=== PATIENT | female | born 1955 | race Caucasian/White ===

== ENCOUNTER 2020-01-15 10:39 | Inpatient (IN) | payer MEDICAID, OTHER ==
[2020-01-15] MEDS ORDERED: NORMAL SALINE 1000 ML 1,000 ML IV ONE ×2 (10:57→13:07)
[2020-01-15] MEDS ORDERED: ONDANSETRON HCL INJ/PF 4 MG/2 ML SDV IV ONE (10:57)
--- NOTE | 2020-01-15 11:04 | ER Document Report ---
ED Medical Screen (RME) - General Chief Complaint: Abdominal Pain Stated Complaint: ABDOMINAL PAIN Time Seen by Provider: 01/15/20 10:52 Primary Care Provider: JAKOB QUINTANILLA PA [Primary Care Provider] - Follow up as needed - HPI Notes: 01/15/20 10:59 64-year-old female was sent over by her PCP (Dr. Glaser) for concern of strangulated umbilical hernia that has been bothering her for the last 5 days. She has been having greenish emesis per her . states that she has had his umbilical hernia for the last year, that she wore tight pants 5 days ago and since then she has had issues with this hernia. On triage patient's blood pressure 74/62, with a pulse ox of 87%. Marline, charge nurse, made aware is Dr. Lawler, ER supervising physician effusion status at 1100. She was bro ught right back to room 8. Consulted with Dr. Lawler about CT abdomen pelvis with IV and oral contrast, due to concern of strangulated hernia, advised to order CT abdomen pelvis with IV contrast. I have greeted and performed a rapid initial assessment of this patient. A comprehensive ED assessment and evaluation of the patient, analysis of test results and completion of the medical decision making process will be conducted by additional ED providers. PHYSICAL EXAMINATION: GENERAL: Well-appearing, well-nourished and in no acute distress. CV: s1, s2 regular LUNGS: wheezing in upper lobes abd: unable to reduce umbilical hernia, noted circumferential erythema around hernia. - Related Data Allergies/Adverse Reactions: No Known Allergies Allergy (Verified 01/15/20 10:52) Doctor's Discharge - Discharge Referrals: JAKOB QUINTANILLA PA [Primary Care Provider] - Follow up as needed
[2020-01-15] MEDS ORDERED: PIPERACILLIN/TAZOBACTAM 4.5 GM VIAL IV ONE (11:15)
--- NOTE | 2020-01-15 11:15 | ER Document Report ---
ED General - General Chief Complaint: Low Blood Pressure Stated Complaint: ABDOMINAL PAIN Time Seen by Provider: 01/15/20 10:52 Primary Care Provider: JAKOB QUINTANILLA PA [PHYSICIAN ASSISTANT MANAGER] - Follow up as needed Mode of Arrival: Ambulatory Information source: Patient - [facility] Notes: Patient seen immediately by me as soon as she arrived in the room. Patient complains of abdominal pain. She states has been going on for approximately 3 days. She has had nausea and vomiting with it. The abdominal pain is located around the umbilicus. It is severe and constant. It is worse with movement and better with rest. It radiates throughout her abdomen. She denies any problems with stool. No problems with urination. She states she has had this mass around her umbilicus for about 1 year but is not seen a doctor about it. She denies any previous abdominal surgeries. - Related Data Allergies/Adverse Reactions: No Known Allergies Allergy (Verified 01/15/20 10:52) Home Medications: HEART MEDICATIONS Past Medical History - General Information source: Patient - Social History Smoking Status: Current Every Day Smoker Chew tobacco use (# tins/day): No Frequency of alcohol use: None Drug Abuse: None Family History: Reviewed & Not Pertinent Patient has homicidal ideation: No Review of Systems - Review of Systems Constitutional: denies: Chills, Fever Cardiovascular: denies: Chest pain, Palpitations Respiratory: denies: Cough, Short of breath -: Yes All other systems reviewed and negative Physical Exam - Vital signs Vitals: Temp Pulse Resp BP Pulse Ox 97.5 F 87 14 74/50 L 87 L 01/15/20 10:50 01/15/20 10:50 01/15/20 10:50 01/15/20 10:50 01/15/20 10:50 Interpretation: Hypotensive, Hypoxic - General General appearance: Alert - HEENT Head: Normocephalic, Atraumatic Eyes: Normal Pupils: PERRL - Respiratory Respiratory status: No respiratory distress Chest status: Nontender Breath sounds: Decreased air movement Chest palpation: Normal - Cardiovascular Rhythm: Regular Heart sounds: Normal auscultation Murmur: No Pulses: Absent: Radial - Abdominal Inspection: Other - [place] obvious hernia Distension: No distension Bowel sounds: Hypoactive Tenderness: Tender - Patient has an obvious umbilical hernia with tenderness to palpation. Is not reducible. It is slightly discolored. - Back Back: Normal, Nontender - Extremities General upper extremity: Normal inspection, Nontender, Normal color, Normal ROM, Normal temperature General lower extremity: Normal inspection, Nontender, Normal color, Normal ROM, Normal temperature, Normal weight bearing. No: Bhavin's sign - Neurological Neuro grossly intact: Yes Cognition: Normal Orientation: AAOx4 [place] Coma Scale Eye Opening: Spontaneous [place] Coma Scale Verbal: Oriented [place] Coma Scale Motor: Obeys Commands Vaibhav Coma Scale Total: 15 Speech: Normal Motor strength normal: LUE, RUE, LLE, RLE Sensory: Normal - Psychological Associated symptoms: Normal affect, Normal mood - Skin Skin Temperature: Warm Skin Moisture: Dry Skin Color: Normal Course - Re-evaluation Re-evalutation: 01/15/20 14:11 Patient presented with complaints of severe abdominal pain. She had an obvious nonreducible umbilical hernia. She was also noted to be hypoxic however her chest x-ray shows no significant abnormality and she is currently on nasal cannula with an adequate oxygen saturation. She was also hypotensive however this is corrected with IV fluids. She has been given antibiotics and has seen the surgeon. She is also been consulted on by cardiology. Please see their notes for further details. In addition I have contacted the patient's primary care physician, Dr. Glaser who will do the admission. Patient at this time is waiting on an operating room to become available. - Vital Signs Vital signs: Temp Pulse Resp BP Pulse Ox 98.4 F 87 20 116/68 85 L 01/15/20 13:45 01/15/20 10:50 01/15/20 13:45 01/15/20 13:45 01/15/20 13:45 - Laboratory Result Diagrams: 01/15/20 10:57 01/15/20 11:15 Laboratory results interpreted by me: 01/15/20 01/15/20 01/15/20 10:57 11:15 11:15 WBC 17.5 H RBC 5.85 H Hgb 19.0 H Hct 54.5 H RDW 14.1 H Lymph % (Auto) 8.4 L Absolute Neuts (auto) 13.8 H Absolute Monos (auto) 2.2 H Seg Neutrophils % 78.8 H VBG pH 7.43 H VBG HCO3 32.5 H Sodium 134.8 L Chloride 81 L Carbon Dioxide 31 H Anion Gap 23 H BUN 77 H Creatinine 3.09 H Est GFR ( Amer) 18 L Est GFR (MDRD) Non-Af 15 L Glucose 143 H Calcium 10.3 H Direct Bilirubin 0.5 H ALT 36 H Total Protein 9.0 H - Diagnostic Test Radiology reviewed: Image reviewed, Reports reviewed - EKG Interpretation by Me EKG shows normal: Sinus rhythm Rate: Normal - 71 Rhythm: NSR P Waves: OLESYA Critical Care Note - Critical Care Note Total time excluding time spent on procedures (mins): 55 Comments: Approximately 55 minutes of critical care time were spent on this patient with a nonreducible umbilical hernia, hypoxia, and hypotension. This time was spent talking with multiple consultants. It is spent reviewing imaging and laboratory values. It was spent talking with patient and doing multiple patient r eassessments. Discharge - Discharge Clinical Impression: Hypoxia, Strangulated umbilical hernia Umbilical hernia Qualifiers: Obstruction and gangrene presence: without obstruction or gangrene Qualified Code(s): K42.9 - Umbilical hernia without obstruction or gangrene Hypotension Qualifiers: Hypotension type: hypotension due to hypovolemia Qualified Code(s): I95.89 - Other hypotension; E86.1 - Hypovolemia Condition: Critical Disposition: ADMITTED INPATIENT Admitting Provider: [facility] Unit Admitted: ICU Referrals: JAKOB QUINTANILLA PA [PHYSICIAN ASSISTANT MANAGER] - Follow up as needed
[2020-01-15] MEDS ORDERED: DEXAMETHASONE SOD PHOSPHATE INJ 4 MG/1 ML VIAL ONE ×2 (11:38→13:54)
[2020-01-15] MEDS ORDERED: ROCURONIUM BROMIDE INJ 50 MG/5 ML VIAL IV ONE (11:38)
[2020-01-15] MEDS ORDERED: PHENYLEPHRINE HCL INJ/PF 10 MG/1 ML SDV ONE (11:38)
[2020-01-15] MEDS ORDERED: ONDANSETRON HCL INJ/PF 4 MG/2 ML SDV ONE ×2 (11:38→13:54)
[2020-01-15] MEDS ORDERED: SUCCINYLCHOLINE CHLORIDE INJ 200 MG/10 ML VIAL ONE (11:38)
[2020-01-15] MEDS ORDERED: ALBUTEROL SULFATE HFA (90 MCG/PUFF) 8 GM MDI IH ONE (11:38)
[2020-01-15 11:48] LABS: VENOUS BLOOD BASE EXCESS 6.4 mmol/L; VENOUS BLOOD HCO3 32.5 mmol/L (20-32); VENOUS BLOOD PCO2 49.8 mmHg (35-63); VENOUS BLOOD PH 7.43 (7.30-7.42)
[2020-01-15 11:49] LABS: ABSOLUTE LYMPHOCYTES (AUTO) 1.5 10^3/uL (0.5-4.7); ABSOLUTE MONOCYTES (AUTO) 2.2 10^3/uL (0.1-1.4); ABSOLUTE NEUT (AUTO) 13.8 10^3/uL (1.7-8.2); BASOPHILS % (AUTO) 0.2 % (0-2); HEMATOCRIT 54.5 % (36.0-47.0); LYMPHOCYTES % (AUTO) 8.4 % (13-45); MEAN CORPUSCULAR HEMOGLOBIN 32.5 pg (27.0-33.4); MEAN CORPUSCULAR HGB CONC 34.8 g/dL (32.0-36.0); MEAN CORPUSCULAR VOLUME 93 fl (80-97); MONOCYTES % (AUTO) 12.6 % (3-13); PLATELET COUNT 312 10^3/uL (150-450); RED BLOOD COUNT 5.85 10^6/uL (3.72-5.28); RED CELL DISTRIBUTION WIDTH 14.1 % (11.5-14.0); SEGMENTED NEUTROPHILS % (AUTO) 78.8 % (42-78); TOTAL CELLS COUNTED % (AUTO) 100 %; WHITE BLOOD COUNT 17.5 10^3/uL (4.0-10.5)
[2020-01-15 11:58] LABS: INTERNATIONAL RATION (INR) 0.96
--- NOTE | 2020-01-15 12:23 | RADIOLOGY REPORT (SQ) ---
EXAM DESCRIPTION: CHEST SINGLE VIEW IMAGES COMPLETED DATE/TIME: 01/15/2020 11:51 am REASON FOR STUDY: hypox COMPARISON: None. EXAM PARAMETERS: NUMBER OF VIEWS: One view. TECHNIQUE: Single frontal radiographic view of the chest acquired. RADIATION DOSE: NA LIMITATIONS: None. FINDINGS: LUNGS AND PLEURA: Linear densities in the right lung base. No focal infiltrate, masses or pneumothorax. No pleural effusion. MEDIASTINUM AND HILAR STRUCTURES: No masses. Contour normal. HEART AND VASCULAR STRUCTURES: Dextrocardia. Heart normal in size. Normal vasculature. BONES: No acute findings. HARDWARE: None in the chest. OTHER: No other significant finding. IMPRESSION: DEXTROCARDIA. LINEAR ATELECTASIS/ SCARRING IN THE RIGHT LUNG BASE. NO OTHER SIGNIFICAN T FINDINGS. TECHNICAL DOCUMENTATION: JOB ID: [id number] 2010 [employer]- All Rights Reserved Reading location - IP/workstation name: [email or web address]
[2020-01-15 12:50] LABS: ALKALINE PHOSPHATASE 86 U/L (38-126); ASPARTATE AMINO TRANSFERASE 24 U/L (14-36); BILIRUBIN,DIRECT 0.5 mg/dL (0.0-0.4); BILIRUBIN,TOTAL 0.9 mg/dL (0.2-1.3); BLOOD UREA NITROGEN 77 mg/dL (7-20); CALCIUM 10.3 mg/dL (8.4-10.2); GLUCOSE 143 mg/dL (75-110); POTASSIUM 4.3 mmol/L (3.6-5.0)
[2020-01-15 12:56] LABS: CARBON DIOXIDE 31 mmol/L (22-30); CHLORIDE 81 mmol/L (98-107)
[2020-01-15 12:59] LABS: ANION GAP 23 (5-19)
--- NOTE | 2020-01-15 13:48 | PDOC CONSULTATION ---
Consultation Consult Date: 01/15/20 Attending physician:: ALYSHA SCHMIDT Provider Consulted: ADRIEL COOLEY Consult reason:: Preop History of Present Illness Admission Date/PCP: ANGELIA KRISHNAN History of Present Illness: HANNAH LYNN is a 64 year old female with history of hypertension, noted to have dextrocardia on chest x-ray today, prior stroke, heart failure, cardiac arrest due to hyperthyroidism and smoker of 1-1/2 pack/day for 40 years who is consulted by the surgery service for preoperative evaluation. The patient had been complaining of abdominal pain for at least 5 days and was found to have a strangulated hernia that requires emergency surgery. Unfortunately the patient is a poor historian and does not remember much of her cardiac history. She does state that she had been followed by Dr. Hannah Ortega from the heart failure clinic at [facility] however have not seen her in several months. She states that it has been many years since she had a heart failure exacerbation and up to this point we do not know the etiology or type of heart failure that she was diagnosed with. She states that she apparently had a cardiac arrest several years ago and she was told it was from thyroid issues and states that as a consequence of it she did have a stroke. I have not been able to corroborate any of this history as the patient's is not available in the room. The patient has a sedentary lifestyle however denies chest pain, shortness of breath, ORTEGA, PND, lower extremity edema, palpitations, syncope and presyncope. Upon initial presentation in the emergency room she was hypotensive but quickly responded to IV fluids. Physical exam in the emergency room on 01/15/2020: GENERAL: Pleasant and conversational. Oriented x3 with normal mood. Not in acute distress. Well groomed and well developed. HEENT: Normocephalic, atraumatic. Pupils equal. Sclerae anicteric. Oropharynx moist. NECK: No JVD. No carotid bruits. LUNGS: Clear to auscultation bilaterally. Normal respiratory effort without the use of accessory muscles or intercostal retractions. CARDIOVASCULAR: Regular rate and rhythm, normal S1 and S2 without murmurs, rubs, or gallops. PMI not displaced. EXTREMITIES: No edema, no cyanosis, no clubbing. +2 pulses femoral and pedal pulses bilaterally. SKIN: No lesions or rashes. MUSCULOSKELETAL: No chest tenderness to palpation. NEUROLOGIC: Nonfocal. Past Medical History Cardiac Medical History: Reports: Congestive Heart Failure Pulmonary Medical History: Reports: Chronic Obstructive Pulmonary Disease (COPD) Past Surgical History Past Surgical History: Reports: None Social History Smoking Status: Current Every Day Smoker Electronic Cigarette use?: No Frequency of Alcohol Use: Rare Hx Recreational Drug Use: No Hx Prescription Drug Abuse: No Family History Parental Family History Reviewed: Yes Children Family History Reviewed: Yes Sibling(s) Family History Reviewed.: Yes Medication/Allergy Allergies/Adverse Reactions: No Known Allergies Allergy (Verified 01/15/20 10:52) Physical Exam Vital Signs: Temp Pulse Resp BP Pulse Ox 97.5 F 87 18 108/70 92 01/15/20 10:50 01/15/20 10:50 01/15/20 13:15 01/15/20 13:15 01/15/20 13:15 Intake & Output 01/14/20 01/15/20 01/16/20 06:59 06:59 06:59 Intake Total 1000 Balance 1000 Weight 66.224 kg Results Laboratory Results: 01/15/20 10:57 01/15/20 11:15 01/15/20 01/15/20 01/15/20 10:57 11:15 11:15 WBC 17.5 H RBC 5.85 H Hgb 19.0 H Hct 54.5 H MCV 93 MCH 32.5 MCHC 34.8 RDW 14.1 H Plt Count 312 Seg Neutrophils % 78.8 H VBG pH 7.43 H VBG pCO2 49.8 VBG HCO3 32.5 H VBG Base Excess 6.4 Sodium 134.8 L Potassium 4.3 Chloride 81 L Carbon Dioxide 31 H Anion Gap 23 H BUN 77 H Creatinine 3.09 H Est GFR ( Amer) 18 L Glucose 143 H Lactic Acid Calcium 10.3 H Total Bilirubin 0.9 AST 24 Alkaline Phosphatase 86 Total Protein 9.0 H Albumin 5.0 Lipase 167.3 Blood Type Antibody Screen 01/15/20 01/15/20 11:15 11:57 WBC RBC Hgb Hct MCV MCH MCHC RDW Plt Count Seg Neutrophils % VBG pH VBG pCO2 VBG HCO3 VBG Base Excess Sodium Potassium Chloride Carbon Dioxide Anion Gap BUN Creatinine Est GFR ( Amer) Glucose Lactic Acid 2.1 Calcium Total Bilirubin AST Alkaline Phosphatase Total Protein Albumin Lipase Blood Type A POSITIVE Antibody Screen NEGATIVE 01/15/20 11:15 Troponin I 0.045 Impressions: Chest X-Ray 01/15/20 11:15 IMPRESSION: DEXTROCARDIA. LINEAR ATELECTASIS/ SCARRING IN THE RIGHT LUNG BASE. NO OTHER SIGNIFICANT FINDINGS. 01/15/20 10:57 01/15/20 11:15 MCV 93 fl (80-97) 01/15/20 10:57 MCH 32.5 pg (27.0-33.4) 01/15/20 10:57 MCHC 34.8 g/dL (32.0-36.0) 01/15/20 10:57 RDW 14.1 % (11.5-14.0) H 01/15/20 10:57 Seg Neutrophils % 78.8 % (42-78) H 01/15/20 10:57 VBG pH 7.43 (7.30-7.42) H 01/15/20 11:15 VBG pCO2 49.8 mmHg (35-63) 01/15/20 11:15 VBG HCO3 32.5 mmol/L (20-32) H 01/15/20 11:15 VBG Base Excess 6.4 mmol/L 01/15/20 11:15 Chloride 81 mmol/L (98-107) L 01/15/20 11:15 Carbon Dioxide 31 mmol/L (22-30) H 01/15/20 11:15 Anion Gap 23 (5-19) H 01/15/20 11:15 Est GFR ( Amer) 18 (>60) L 01/15/20 11:15 Glucose 143 mg/dL (75-110) H 01/15/20 11:15 Lactic Acid 2.1 mmol/L (0.7-2.1) 01/15/20 11:15 Calcium 10.3 mg/dL (8.4-10.2) H 01/15/20 11:15 Total Bilirubin 0.9 mg/dL (0.2-1.3) 01/15/20 11:15 AST 24 U/L (14-36) 01/15/20 11:15 Alkaline Phosphatase 86 U/L (38-126) 01/15/20 11:15 Total Protein 9.0 g/dL (6.3-8.2) H 01/15/20 11:15 Albumin 5.0 g/dL (3.5-5.0) 01/15/20 11:15 Lipase 167.3 U/L (23-300) 01/15/20 11:15 Blood Type A POSITIVE 01/15/20 11:57 Antibody Screen NEGATIVE 01/15/20 11:57 01/15/20 11:15 Troponin I 0.045 Current Medication List Discontinued Medications Generic Name Dose Route Start Last Admin Trade Name Elma PRN Reason Stop Dose Admin Sodium Chloride 1,000 mls @ 0 mls/hr 01/15/20 10:57 01/15/20 12:35 Nacl 0.9% 1000 Ml Iv Soln IV 01/15/20 10:58 Infused BOLUS ONE Infusion Wide Open Sodium Chloride 1,000 mls @ 0 mls/hr 01/15/20 13:07 01/15/20 13:21 Nacl 0.9% 1000 Ml Iv Soln IV 01/15/20 13:08 999 mls/hr BOLUS ONE Administration Wide Open Ondansetron HCl 4 mg 01/15/20 10:57 01/15/20 11:22 Zofran Inj/Pf 4 Mg/2 Ml Sdv IV 01/15/20 10:58 4 mg NOW ONE Administration Piperacillin Sod/Tazobactam Sod 4.5 gm 01/15/20 11:15 01/15/20 11:37 Zosyn Inj 4.5 Gm Vial IV 01/15/20 11:16 4.5 gm IVBAG (ED) ONE Administration Assessment & Plan - Diagnosis (1) Preop cardiovascular exam Is this a current diagnosis for this admission?: Yes Plan: 64-year-old female with cardiac history as delineated above who presented to the emergency room with abdominal pain secondary to a strangulated umbilical hernia as well as renal failure among other laboratory abnormalities. Unfortunately she is a poor historian and does not remember her cardiac history, at this point we do not have any records however the patient is hemodynamically stable and free of cardiac symptoms. At this point she needs emergency surgery therefore she will undergo the surgical procedure without further cardiovascular work-up. We will continue to follow the patient after surgery and will proceed with appropriate cardiovascular work-up and obtain records from Dr. Ortega.
[2020-01-15] MEDS ORDERED: PROPOFOL INJ 200 MG/20 ML VIAL IV ONE (13:54)
[2020-01-15] MEDS ORDERED: SUGAMMADEX SODIUM 200 MG/2 ML SDV IV ONE (13:54)
[2020-01-15] MEDS ORDERED: MIDAZOLAM 2 MG/2 ML INJ ONE (13:54)
[2020-01-15] MEDS ORDERED: FENTANYL CITRATE INJ/PF 100 MCG/2 ML AMPUL ONE ×2 (13:54→17:55)
[2020-01-15 14:17] LABS: APPEARANCE,URINE CLOUDY; BILIRUBIN,URINE NEGATIVE (NEGATIVE); COLOR,URINE DARK YELLOW; GLUCOSE, URINE NEGATIVE (NEGATIVE); KETONES,URINE NEGATIVE (NEGATIVE); PROTEIN,URINE 100 mg/dL (NEGATIVE); URINE SPECIFIC GRAVITY 1.021
[2020-01-15] MEDS ORDERED: BUPIVACAINE HCL 0.25 % INJ/PF (2.5 MG/1 ML) 30 ML VIAL ONE (15:35)
[2020-01-15] MEDS ORDERED: PROMETHAZINE HCL INJ 25 MG/1 ML VIAL IV PRN ×2 (17:14)
[2020-01-15] MEDS ORDERED: MEPERIDINE HCL/PF INJ 25 MG/1 ML DISP.SYRIN IV PRN (17:14)
[2020-01-15] MEDS ORDERED: FENTANYL CITRATE INJ/PF 100 MCG/2 ML AMPUL IV PRN ×2 (17:14)
[2020-01-15] MEDS ORDERED: MORPHINE SULFATE 10 MG/ML INJ IV PRN ×2 (17:14→17:51)
[2020-01-15] MEDS ORDERED: ONDANSETRON HCL INJ/PF 4 MG/2 ML SDV IV PRN ×2 (17:14→17:51)
[2020-01-15] MEDS ORDERED: DIPHENHYDRAMINE HCL 50 MG/ML VIAL IV PRN (17:14)
--- NOTE | 2020-01-15 17:49 | Operative Report ---
Operative Report DATE OF SURGERY: 01/15/20 PREOPERATIVE DIAGNOSIS: Strangulated umbilical hernia POSTOPERATIVE DIAGNOSIS: Incarcerated umbilical hernia OPERATION: Incarcerated umbilical hernia repair SURGEON: ALYSHA SCHMIDT ANESTHESIA: GA TISSUE REMOVED OR ALTERED: Hernia sac COMPLICATIONS: None ESTIMATED BLOOD LOSS: 10 cc INTRAOPERATIVE FINDINGS: 2 cm fascial defect at the umbilicus with knuckle of the incarcerated small bowel with initially dark discoloration but later with observation demonstrating viability. PROCEDURE: Informed consent was obtained. Patient was brought to the operating room and placed on the operating room table in the supine position. After satisfactory induction of general anesthesia, patient's abdomen was prepped and draped in the usual sterile fashion. A vertical periumbilical incision was made and dissection was carried down and the hernia sac was dissected free from the surrounding structures sharply taking great care to avoid making the periumbilical skin ischemic. The hernia sac appeared to have very dark. Rather than the risk an enterotomy and also to allow better exposure of any incarcerated bowel, the peritoneal cavity was entered couple of centimeters above the hernia. And the fascial incision was then connected to the hernia. There was a loop of bowel incarcerated through the umbilical hernia that appeared dark, ischemic. After the bowel was reduced the small bowel was run proximally and distally for about [address] and the bowel appeared normal proximally and distally with no significant distention. The knuckle of bowel that appeared dark was returned back into the peritoneal cavity and the sac was completely excised and the fascial defect clearly defined. The hernia fascial defect measured about 2 cm and including the fascial cut above it the entire fascial defect now measured about 4 cm in length. hemostasis appeared excellent. After a few minutes the small bowel was eviscerated and the region of darkness was reevaluated. It appeared much better, appearing more irritated than ischemic. There was pulsations that was palpable in its mesentery. I again returned back into the peritoneal cavity and waited a few minutes and then reinspected it and it continued to improve in appearance. Although not back to completely normal, I felt confident that it was not compromised and I felt that the risk of this region perforating was extremely low. With this appearance no resection was performed. The fascia, hernia repair, was performed with interrupted Ethibond sutures. The repair came together well without tension. A Nelson drain was placed at the subcutaneous space and brought out through a left inferior skin incision and sutured in place. The bellybutton was tacked to the underlying fascia using an interrupted Vicryl suture. The skin was closed with running subcuticular Monocryl suture. Marcaine was injected at the operative site. Patient tolerated procedure well with no apparent complications and was taken to the recovery area in stable condition.
--- NOTE | 2020-01-15 17:51 | PDOC CONSULTATION ---
Consultation Consult Date: 01/15/20 Provider Consulted: ALYSHA SCHMIDT Consult reason:: Umbilical hernia History of Present Illness Admission Date/PCP: ANGELIA KRISHNAN Patient complains of: Periumbilical pain History of Present Illness: GISSEL LYNN is a 64 year old female With a 1 year history of incarcerated umbilical hernia. Patient was doing some strenuous activity 4 days ago and soon after developed pain at the periumbilical bulge along with redness and nausea and vomiting. The symptoms persisted along with generalized weakness and she subsequently came into the emergency room. She has not had a bowel movement for 4 days. She denies any chronic co nstipation however. She had been feeling well up until 4 days ago. She is a longtime smoker. She has a history of congestive heart failure, uncertain of severity. She does note that she is able to walk without shortness of breath or chest pain. She has a history of the right body stroke in the remote past with some residual weakness. She has had no prior abdominal surgeries. Past Medical History Cardiac Medical History: Reports: Congestive Heart Failure Pulmonary Medical History: Reports: Chronic Obstructive Pulmonary Disease (COPD) Past Surgical History Past Surgical History: Reports: None Social History Smoking Status: Current Every Day Smoker Electronic Cigarette use?: No Frequency of Alcohol Use: Rare Hx Recreational Drug Use: No Hx Prescription Drug Abuse: No Family History Parental Family History Reviewed: Yes Children Family History Reviewed: Yes Sibling(s) Family History Reviewed.: Yes Medication/Allergy Allergies/Adverse Reactions: No Known Allergies Allergy (Verified 01/15/20 10:52) Review of Systems All systems: reviewed and no additional remarkable complaints except as stated Constitutional: PRESENT: as per HPI Cardiovascular: PRESENT: as per HPI Gastrointestinal: PRESENT: as per HPI Neurological: PRESENT: as per HPI Endocrine: PRESENT: other - History of thyroid disease in the remote past. Physical Exam Vital Signs: Temp Pulse Resp BP Pulse Ox 97.5 F 87 18 108/70 92 01/15/20 10:50 01/15/20 10:50 01/15/20 13:15 01/15/20 13:15 01/15/20 13:15 Intake & Output 01/14/20 01/15/20 01/16/20 06:59 06:59 06:59 Intake Total 1000 Balance 1000 Weight 66.224 kg General appearance: PRESENT: no acute distress, cooperative Eye exam: PRESENT: conjunctiva pink Neck exam: PRESENT: other - Supple with no tenderness and no masses Respiratory exam: PRESENT: clear to auscultation lexi - Clear but prolonged expiration. Cardiovascular exam: PRESENT: RRR GI/Abdominal exam: PRESENT: other - Soft, nondistended, plum-sized periumbilical bulge that is nonreducible with tenderness and overlying erythema. Remainder of the abdomen is soft and nontender however. No palpable groin hernias. Extremities exam: PRESENT: other - No swelling and no tenderness Neurological exam: PRESENT: alert, awake, CN II-XII grossly intact, other - Patient has 5+ strength in all 4 extremities although she does have a subtle right sided weakness. Psychiatric exam: PRESENT: appropriate affect Skin exam: PRESENT: warm Results Laboratory Results: 01/15/20 10:57 01/15/20 11:15 01/15/20 01/15/20 01/15/20 10:57 11:15 11:15 WBC 17.5 H RBC 5.85 H Hgb 19.0 H Hct 54.5 H MCV 93 MCH 32.5 MCHC 34.8 RDW 14.1 H Plt Count 312 Seg Neutrophils % 78.8 H VBG pH 7.43 H VBG pCO2 49.8 VBG HCO3 32.5 H VBG Base Excess 6.4 Sodium 134.8 L Potassium 4.3 Chloride 81 L Carbon Dioxide 31 H Anion Gap 23 H BUN 77 H Creatinine 3.09 H Est GFR ( Amer) 18 L Glucose 143 H Lactic Acid Calcium 10.3 H Total Bilirubin 0.9 AST 24 Alkaline Phosphatase 86 Total Protein 9.0 H Albumin 5.0 Lipase 167.3 Blood Type Antibody Screen 01/15/20 01/15/20 11:15 11:57 WBC RBC Hgb Hct MCV MCH MCHC RDW Plt Count Seg Neutrophils % VBG pH VBG pCO2 VBG HCO3 VBG Base Excess Sodium Potassium Chloride Carbon Dioxide Anion Gap BUN Creatinine Est GFR ( Amer) Glucose Lactic Acid 2.1 Calcium Total Bilirubin AST Alkaline Phosphatase Total Protein Albumin Lipase Blood Type A POSITIVE Antibody Screen NEGATIVE 01/15/20 11:15 Troponin I 0.045 Impressions: Chest X-Ray 01/15/20 11:15 IMPRESSION: DEXTROCARDIA. LINEAR ATELECTASIS/ SCARRING IN THE RIGHT LUNG BASE. NO OTHER SIGNIFICANT FINDINGS. Assessment & Plan - Diagnosis (1) Strangulated umbilical hernia Is this a current diagnosis for this admission?: Yes Plan: Incarcerated umbilical hernia, possible strangulated with symptoms suggestive of a bowel obstruction. We will plan umbilical hernia repair with possible bowel resection, possible colostomy. In this setting I will try to avoid mesh since infection risk is much higher. I have discussed with the patient the risk and benefits of the surgery including risk of cardiopulmonary and stroke risk, risk of infection and bleeding and hernia recurrence as well as anastomotic leak and intestinal injury. Patient understands and agrees to proceed. Since she has renal failure and history of congestive heart failure and most likely COPD, I will have the patient be admitted to the medical service. Will obtain cardiology consultation. Will fluid resuscitate the patient prior to the OR. Patient already given IV antibiotics.
[2020-01-15] MEDS ORDERED: DEXTROSE 50%-WATER 25 GM/50 ML DISP.SYRIN IV PRN ×2 (17:53)
[2020-01-15] MEDS ORDERED: GLUCAGON,HUMAN RECOMB 1 MG INJ SUBCUT PRN (17:53)
[2020-01-15] MEDS ORDERED: DEXTROSE 40% GEL 15 GM TUBE PO PRN ×2 (17:53)
[2020-01-15] MEDS: FENTANYL CITRATE INJ/PF 100 MCG/2 ML AMPUL IV PRN ×2 (17:57→18:02)
[2020-01-15] MEDS ORDERED: IPRATROPIUM/ALBUTEROL 0.5-2.5 MG/3 ML AMPUL NEB ONE (18:30)
--- NOTE | 2020-01-15 21:23 | EKG REPORT ---
SEVERITY:- DEFECTIVE ECG - RIGHT AND LEFT ARM LEADS REVERSED, PLEASE REPEAT ECG SINUS RHYTHM LVH : Confirmed by: Mykel Villagomez MD 15-Jan-2020 21:22:56
--- NOTE | 2020-01-15 21:23 | EKG REPORT ---
SEVERITY:- DEFECTIVE ECG - RIGHT AND LEFT ARM LEADS REVERSED, PLEASE REPEAT ECG : Confirmed by: Mykel Villagomez MD 15-Jan-2020 21:22:47
--- NOTE | 2020-01-15 22:43 | PDOC H&P ---
History of Present Illness Admission Date/PCP: 01/15/20 14:53 ANGELIA KRISHNAN Patient complains of: Abdominal pain History of Present Illness: GISSEL LYNN is a 64 year old female patient known to my practice who has missed several office appointment due to lack of insurance coverage. She presented to the office earlier today with three days history of worsening abdominal pain with associated nausea and vomiting. She reported difficulty with her umbilical hernia becoming more difficulty to reduce and associated pain. She denied any fever or chills. She reported compliance with her medication. She has not been able to follow up with her technology adoption manager at [facility] but informed me during her visit that she wanted her CMP test completed at the directive of her technology adoption manager. Her office evaluation did revealed incarcerated umbilical hernia and she appeared acutely ill in the office. Her CBC with differential did revealed leukocytosis with left shift. She was advised hospitalization but due to need for COVID-19 testing, she was directed to the ED for further evaluation. She was seen in consultation by technology adoption manager and the on duty surgicalist for cardiac clearance and immediate surgical intervention. Her morbidities are at listed below. Past Medical History Cardiac Medical History: Reports: Congestive Heart Failure Pulmonary Medical History: Reports: Chronic Obstructive Pulmonary Disease (COPD) Past Surgical History Past Surgical History: Reports: None Social History Smoking Status: Current Every Day Smoker Electronic Cigarette use?: No Frequency of Alcohol Use: Rare Hx Recreational Drug Use: No Hx Prescription Drug Abuse: No - Advance Directive Resuscitation Status: Full Code Family History Family History: Reviewed & Not Pertinent Parental Family History Reviewed: Yes Children Family History Reviewed: Yes Sibling(s) Family History Reviewed.: Yes Medication/Allergy Home Medications: Aspirin [Ecotrin 81 mg EC Tablet] 81 mg PO DAILY 01/15/20 Carvedilol [Coreg] 25 mg PO Q12 01/15/20 Lisinopril [Zestril] 40 mg PO DAILY 01/15/20 Allergies/Adverse Reactions: No Known Allergies Allergy (Verified 01/15/20 10:52) Review of Systems Constitutional: ABSENT: chills, fever(s), headache(s) Eyes: ABSENT: visual disturbances Ears: ABSENT: hearing changes Cardiovascular: ABSENT: chest pain, dyspnea on exertion, edema, orthropnea, palpitations Respiratory: ABSENT: cough, hemoptysis Gastrointestinal: PRESENT: abdominal pain, nausea, vomiting. ABSENT: constipation, diarrhea, hematemesis, hematochezia Genitourinary: ABSENT: dysuria, hematuria Musculoskeletal: ABSENT: joint swelling Integumentary: ABSENT: rash, wounds Neurological: ABSENT: abnormal gait, abnormal speech, confusion, dizziness, focal weakness, syncope Psychiatric: ABSENT: anxiety, depression, homidical ideation, suicidal ideation Endocrine: ABSENT: cold intolerance, heat intolerance, menstrual abnormalities, polydipsia, polyuria Hematologic/Lymphatic: ABSENT: easy bleeding, easy bruising, lymphadenopathy Physical Exam Vital Signs: Temp Pulse Resp BP Pulse Ox 97.6 F 76 18 114/85 98 01/15/20 17:42 01/15/20 17:42 01/15/20 17:42 01/15/20 17:42 01/15/20 17:42 Intake & Output 01/14/20 01/15/20 01/16/20 06:59 06:59 06:59 Intake Total 1999 Balance 1999 Weight 66.224 kg General appearance: PRESENT: no acute distress Head exam: PRESENT: atraumatic, normocephalic Eye exam: PRESENT: conjunctiva pink, EOMI, PERRLA. ABSENT: scleral icterus Ear exam: PRESENT: normal external ear exam Mouth exam: PRESENT: dry mucosa, tongue midline Teeth exam: PRESENT: edentulous Neck exam: PRESENT: full ROM. ABSENT: carotid bruit, JVD, lymphadenopathy, thyromegaly Respiratory exam: PRESENT: clear to auscultation lexi Cardiovascular exam: PRESENT: RRR, +S1, +S2. ABSENT: diastolic murmur, rubs, systolic murmur Vascular exam: PRESENT: normal capillary refill. ABSENT: pallor GI/Abdominal exam: PRESENT: hernia, normal bowel sounds, soft, tenderness - around firm, irreducible umbilical hernia. ABSENT: distended, guarding, mass, organolmegaly, rebound Rectal exam: PRESENT: deferred Extremities exam: ABSENT: pedal edema Musculoskeletal exam: PRESENT: full ROM Neurological exam: PRESENT: alert, awake, oriented to person, oriented to place, oriented to time, oriented to situation, CN II-XII grossly intact. ABSENT: motor sensory deficit Psychiatric exam: PRESENT: appropriate affect, normal mood. ABSENT: homicidal ideation, suicidal ideation Skin exam: PRESENT: dry, intact, warm. ABSENT: cyanosis, rash Results Laboratory Results: 01/15/20 10:57 01/15/20 11:15 01/15/20 01/15/20 01/15/20 10:57 11:15 11:15 WBC 17.5 H RBC 5.85 H Hgb 19.0 H Hct 54.5 H MCV 93 MCH 32.5 MCHC 34.8 RDW 14.1 H Plt Count 312 Seg Neutrophils % 78.8 H VBG pH 7.43 H VBG pCO2 49.8 VBG HCO3 32.5 H VBG Base Excess 6.4 Sodium 134.8 L Potassium 4.3 Chloride 81 L Carbon Dioxide 31 H Anion Gap 23 H BUN 77 H Creatinine 3.09 H Est GFR ( Amer) 18 L Glucose 143 H Lactic Acid Calcium 10.3 H Total Bilirubin 0.9 AST 24 Alkaline Phosphatase 86 Total Protein 9.0 H Albumin 5.0 Lipase 167.3 Urine Color Urine Appearance Urine pH Ur Specific [place] Urine Protein Urine Glucose (UA) Urine Ketones Urine Blood Urine RBC (Auto) Blood Type Antibody Screen 01/15/20 01/15/20 01/15/20 11:15 11:57 13:48 WBC RBC Hgb Hct MCV MCH MCHC RDW Plt Count Seg Neutrophils % VBG pH VBG pCO2 VBG HCO3 VBG Base Excess Sodium Potassium Chloride Carbon Dioxide Anion Gap BUN Creatinine Est GFR ( Amer) Glucose Lactic Acid 2.1 Calcium Total Bilirubin AST Alkaline Phosphatase Total Protein Albumin Lipase Urine Color DARK YELLOW Urine Appearance CLOUDY Urine pH 5.0 Ur Specific [place] 1.021 Urine Protein 100 H Urine Glucose (UA) NEGATIVE Urine Ketones NEGATIVE Urine Blood SMALL H Urine RBC (Auto) 11 Blood Type A POSITIVE Antibody Screen NEGATIVE 01/15/20 15:48 WBC RBC Hgb Hct MCV MCH MCHC RDW Plt Count Seg Neutrophils % VBG pH VBG pCO2 VBG HCO3 VBG Base Excess Sodium Potassium Chloride Carbon Dioxide Anion Gap BUN Creatinine Est GFR ( Amer) Glucose Lactic Acid 0.9 Calcium Total Bilirubin AST Alkaline Phosphatase Total Protein Albumin Lipase Urine Color Urine Appearance Urine pH Ur Specific [place] Urine Protein Urine Glucose (UA) Urine Ketones Urine Blood Urine RBC (Auto) Blood Type Antibody Screen 01/15/20 11:15 Troponin I 0.045 Impressions: Chest X-Ray 01/15/20 11:15 IMPRESSION: DEXTROCARDIA. LINEAR ATELECTASIS/ SCARRING IN THE RIGHT LUNG BASE. NO OTHER SIGNIFICANT FINDINGS. Assessment & Plan - Diagnosis (1) Strangulated umbilical hernia Is this a current diagnosis for this admission?: Yes Plan: See admitting attending physician orders for details about care plan. (2) Hypotension Qualifiers: Hypotension type: hypotension due to hypovolemia Qualified Code(s): I95.89 - Other hypotension; E86.1 - Hypovolemia Is this a current diagnosis for this admission?: Yes Plan: See admitting attending physician orders for details about care plan. (3) Non-ischemic cardiomyopathy Is this a current diagnosis for this admission?: Yes Plan: See admitting attending physician orders for details about care plan. (4) Chronic systolic CHF (congestive heart failure) Is this a current diagnosis for this admission?: Yes Plan: See admitting attending physician orders for details about care plan. (5) COPD (chronic obstructive pulmonary disease) Is this a current diagnosis for this admission?: Yes Plan: See admitting attending physician orders for details about care plan. - Time Time Spent: 50 to 70 Minutes Medications reviewed and adjusted accordingly: Yes Anticipated Discharge Disposition: Home with Home Health Anticipated Discharge Timeframe: within 72 hours - Inpatient Certification Based on my medical assessment, after consideration of the patient's comorbidit ies, presenting symptoms, or acuity I expect that the services needed warrant INPATIENT care.: Yes I certify that my determination is in accordance with my understanding of Me francesca's requirements for reasonable and necessary INPATIENT services [42 CFR 412.3e].: Yes Medical Necessity: Significant Comorbidiites Make Outpatient Treatment Too Risky, Need Close Monitoring Due to Risk of Patient Decompensation, Need For IV Fluids, Need For Continuous Telemetry Monitoring, Need for Pain Control, Need for IV Antibiotics, Need for Surgery, Risk of Complication if Not Cared For in Hospital, Risk of Diagnosis Which Will Require Inpatient Eval/Care/Monitoring Post Hospital Care: D/C Joinery Patternmaker Documentation - Plan Summary Plan Summary: See admitting attending physician orders for details about care plan.
[2020-01-15] MEDS: NORMAL SALINE 1000 ML 1,000 ML IV PRN (23:14)
--- NOTE | 2020-01-16 01:32 | PDOC PROGRESS REPORT ---
Subjective Progress Note for:: 01/16/20 Subjective:: Resting comfortably. States that she feels well. Reason For Visit: INCARCIRATED UMBILICAL HERNIA NON ISCHEMIC Physical Exam Vital Signs: Temp Pulse Resp BP Pulse Ox 98.0 F 69 20 108/57 L 93 01/15/20 23:13 01/15/20 23:13 01/15/20 23:13 01/15/20 23:13 01/15/20 23:13 Intake & Output 01/14/20 01/15/20 01/16/20 06:59 06:59 06:59 Intake Total 3000 Output Total 50 Balance 2950 Weight 67 kg General appearance: PRESENT: no acute distress, cooperative Respiratory exam: PRESENT: clear to auscultation lexi Cardiovascular exam: PRESENT: RRR GI/Abdominal exam: PRESENT: other - Soft, Nondistended, mild periumbilical tenderness. Drain output is serosanguineous. Results Laboratory Results: 01/15/20 10:57 01/15/20 11:15 01/15/20 01/15/20 01/15/20 10:57 11:15 11:15 WBC 17.5 H RBC 5.85 H Hgb 19.0 H Hct 54.5 H MCV 93 MCH 32.5 MCHC 34.8 RDW 14.1 H Plt Count 312 Seg Neutrophils % 78.8 H VBG pH 7.43 H VBG pCO2 49.8 VBG HCO3 32.5 H VBG Base Excess 6.4 Sodium 134.8 L Potassium 4.3 Chloride 81 L Carbon Dioxide 31 H Anion Gap 23 H BUN 77 H Creatinine 3.09 H Est GFR ( Amer) 18 L Glucose 143 H Lactic Acid Calcium 10.3 H Total Bilirubin 0.9 AST 24 Alkaline Phosphatase 86 Total Protein 9.0 H Albumin 5.0 Lipase 167.3 Urine Color Urine Appearance Urine pH Ur Specific [place] Urine Protein Urine Glucose (UA) Urine Ketones Urine Blood Urine RBC (Auto) Blood Type Antibody Screen 01/15/20 01/15/20 01/15/20 11:15 11:57 13:48 WBC RBC Hgb Hct MCV MCH MCHC RDW Plt Count Seg Neutrophils % VBG pH VBG pCO2 VBG HCO3 VBG Base Excess Sodium Potassium Chloride Carbon Dioxide Anion Gap BUN Creatinine Est GFR ( Amer) Glucose Lactic Acid 2.1 Calcium Total Bilirubin AST Alkaline Phosphatase Total Protein Albumin Lipase Urine Color DARK YELLOW Urine Appearance CLOUDY Urine pH 5.0 Ur Specific [place] 1.021 Urine Protein 100 H Urine Glucose (UA) NEGATIVE Urine Ketones NEGATIVE Urine Blood SMALL H Urine RBC (Auto) 11 Blood Type A POSITIVE Antibody Screen NEGATIVE 01/15/20 01/15/20 15:48 19:55 WBC RBC Hgb Hct MCV MCH MCHC RDW Plt Count Seg Neutrophils % VBG pH VBG pCO2 VBG HCO3 VBG Base Excess Sodium Potassium Chloride Carbon Dioxide Anion Gap BUN Creatinine Est GFR ( Amer) Glucose Lactic Acid 0.9 1.4 Calcium Total Bilirubin AST Alkaline Phosphatase Total Protein Albumin Lipase Urine Color Urine Appearance Urine pH Ur Specific [place] Urine Protein Urine Glucose (UA) Urine Ketones Urine Blood Urine RBC (Auto) Blood Type Antibody Screen 01/15/20 11:15 Troponin I 0.045 Impressions: Chest X-Ray 01/15/20 11:15 IMPRESSION: DEXTROCARDIA. LINEAR ATELECTASIS/ SCARRING IN THE RIGHT LUNG BASE. NO OTHER SIGNIFICANT FINDINGS. Assessment & Plan - Diagnosis (1) Incarcerated umbilical hernia Is this a current diagnosis for this admission?: Yes Plan: Status post primary repair. Patient looks good postoperatively. Await bowel function. - Time Anticipated Discharge Disposition: Home, Self Care Anticipated Discharge Timeframe: within 72 hours
[2020-01-16] MEDS: PANTOPRAZOLE SODIUM 40 MG VIAL IV SCH ×3 (03:00→21:35)
[2020-01-16 06:45] LABS: ABSOLUTE LYMPHOCYTES (AUTO) 1.1 10^3/uL (0.5-4.7); ABSOLUTE MONOCYTES (AUTO) 2.2 10^3/uL (0.1-1.4); ABSOLUTE NEUT (AUTO) 10.7 10^3/uL (1.7-8.2); BASOPHILS % (AUTO) 0.1 % (0-2); HEMATOCRIT 42.2 % (36.0-47.0); LYMPHOCYTES % (AUTO) 8.1 % (13-45); MEAN CORPUSCULAR HEMOGLOBIN 32.4 pg (27.0-33.4); MEAN CORPUSCULAR HGB CONC 34.3 g/dL (32.0-36.0); MEAN CORPUSCULAR VOLUME 94 fl (80-97); MONOCYTES % (AUTO) 15.9 % (3-13); PLATELET COUNT 247 10^3/uL (150-450); RED BLOOD COUNT 4.47 10^6/uL (3.72-5.28); RED CELL DISTRIBUTION WIDTH 13.5 % (11.5-14.0); SEGMENTED NEUTROPHILS % (AUTO) 75.9 % (42-78); TOTAL CELLS COUNTED % (AUTO) 100 %; WHITE BLOOD COUNT 14.1 10^3/uL (4.0-10.5)
[2020-01-16 07:06] LABS: HEMOGLOBIN 14.5 g/dL (12.0-15.5)
[2020-01-16 07:07] LABS: ALKALINE PHOSPHATASE 48 U/L (38-126); ANION GAP 11 (5-19); ASPARTATE AMINO TRANSFERASE 21 U/L (14-36); BILIRUBIN,DIRECT 0.3 mg/dL (0.0-0.4); BILIRUBIN,TOTAL 0.6 mg/dL (0.2-1.3); BLOOD UREA NITROGEN 60 mg/dL (7-20); CALCIUM 8.2 mg/dL (8.4-10.2); CARBON DIOXIDE 24 mmol/L (22-30); CHLORIDE 101 mmol/L (98-107); GLUCOSE 103 mg/dL (75-110); POTASSIUM 4.1 mmol/L (3.6-5.0); TOTAL PROTEIN 5.6 g/dL (6.3-8.2)
[2020-01-16] MEDS: NORMAL SALINE 1000 ML 1,000 ML IV PRN ×2 (07:30→16:00)
[2020-01-16] MEDS: ENOXAPARIN SODIUM INJ 40 MG/0.4 ML DISP.SYRIN SUBCUT SCH (10:11)
[2020-01-16] MEDS: ASPIRIN 81 MG TABLET, ENT COATED PO SCH (10:11)
--- NOTE | 2020-01-16 18:32 | PDOC PROGRESS REPORT ---
Subjective Progress Note for:: 01/16/20 Subjective:: Tolerating clear liquid diet. No nausea or vomiting. Abdominal pain around surgical wound site improving. No chest pain or difficulty with breathing. No fever or chills. Reason For Visit: INCARCIRATED UMBILICAL HERNIA NON ISCHEMIC Physical Exam Vital Signs: Temp Pulse Resp BP Pulse Ox 98.5 F 74 17 121/61 97 01/16/20 15:36 01/16/20 15:36 01/16/20 15:36 01/16/20 15:36 01/16/20 15:36 Intake & Output 01/15/20 01/16/20 01/17/20 06:59 06:59 06:59 Intake Total 3000 Output Total 1335 Balance 1665 Weight 67 kg General appearance: PRESENT: no acute distress Head exam: PRESENT: atraumatic, normocephalic Eye exam: PRESENT: conjunctiva pink. ABSENT: scleral icterus Mouth exam: PRESENT: moist Teeth exam: PRESENT: edentulous Respiratory exam: PRESENT: clear to auscultation lexi Cardiovascular exam: PRESENT: RRR, +S1, +S2. ABSENT: diastolic murmur, rubs, systolic murmur Vascular exam: ABSENT: pallor GI/Abdominal exam: PRESENT: normal bowel sounds, soft, tenderness - around surgical wound site. [place] in place. No erythema, discharge, or drainage.. ABSENT: distended, guarding, mass, organolmegaly, rebound Extremities exam: ABSENT: pedal edema Neurological exam: PRESENT: alert, awake, oriented to person, oriented to place, oriented to time, oriented to situation, CN II-XII grossly intact. ABSENT: motor sensory deficit Skin exam: PRESENT: dry, warm, other - subcutaneous drainage system with serosanguineous fluid. Results Laboratory Results: 01/16/20 05:38 01/16/20 05:38 01/15/20 01/16/20 01/16/20 19:55 05:38 05:38 WBC 14.1 H RBC 4.47 Hgb 14.5 D Hct 42.2 MCV 94 MCH 32.4 MCHC 34.3 RDW 13.5 Plt Count 247 Seg Neutrophils % 75.9 Sodium 136.2 L Potassium 4.1 Chloride 101 Carbon Dioxide 24 Anion Gap 11 BUN 60 H Creatinine 1.36 H Est GFR ( Amer) 48 L Glucose 103 Lactic Acid 1.4 Calcium 8.2 L Total Bilirubin 0.6 AST 21 Alkaline Phosphatase 48 Total Protein 5.6 L Albumin 3.0 L 01/15/20 11:15 Troponin I 0.045 Impressions: Chest X-Ray 01/15/20 11:15 IMPRESSION: DEXTROCARDIA. LINEAR ATELECTASIS/ SCARRING IN THE RIGHT LUNG BASE. NO OTHER SIGNIFICANT FINDINGS. Assessment & Plan - Diagnosis (1) Strangulated umbilical hernia Is this a current diagnosis for this admission?: Yes (2) Hypotension Qualifiers: Hypotension type: hypotension due to hypovolemia Qualified Code(s): I95.89 - Other hypotension; E86.1 - Hypovolemia Is this a current diagnosis for this admission?: Yes (3) Non-ischemic cardiomyopathy Is this a current diagnosis for this admission?: Yes (4) Chronic systolic CHF (congestive heart failure) Is this a current diagnosis for this admission?: Yes (5) COPD (chronic obstructive pulmonary disease) Is this a current diagnosis for this admission?: Yes - Time Time Spent with patient: 25-34 minutes Level of Care: IMCU Medications reviewed and adjusted accordingly: Yes Anticipated discharge: Home with Homehealth Anticipated DC Timeframe: within 72 hours - Inpatient Certification Based on my medical assessment, after consideration of the patient's comorbidities, presenting symptoms, or acuity I expect that the services needed warrant INPATIENT care.: Yes I certify that my determination is in accordance with my understanding of Medicare's requirements for reasonable and necessary INPATIENT services [42 CFR 412.3e].: Yes Medical Necessity: Significant Comorbidiites Make Outpatient Treatment Too Ri jigna, Need Close Monitoring Due to Risk of Patient Decompensation, Need For IV Fluids, Need For Continuous Telemetry Monitoring, Need for Pain Control, Need for IV Antibiotics, Need for Surgery, Risk of Complication if Not Cared For in Hospital, Risk of Diagnosis Which Will Require Inpatient Eval/Care/Monitoring Post Hospital Care: D/C Unattended Ground Sensor Specialist Documentation - Plan Summary Plan Summary: D/C Alcazar catheter. Encourage use of incentive spirometer. Continue current medication management. Will restart on her preadmission GDMT for CHF.
[2020-01-17] MEDS: NORMAL SALINE 1000 ML 1,000 ML IV PRN ×2 (01:59→10:00)
--- NOTE | 2020-01-17 08:31 | PDOC PROGRESS REPORT ---
Subjective Progress Note for:: 01/17/20 Subjective:: Feels well. Passing gas. Tolerating clear liquids. Reason For Visit: INCARCIRATED UMBILICAL HERNIA NON ISCHEMIC Physical Exam Vital Signs: Temp Pulse Resp BP Pulse Ox 98.1 F 63 19 126/68 H 96 01/17/20 07:21 01/17/20 07:21 01/17/20 07:21 01/17/20 07:21 01/17/20 07:21 Intake & Output 01/16/20 01/17/20 01/18/20 06:59 06:59 06:59 Intake Total 3000 6728 Output Total 1335 2025 Balance 1665 4703 Weight 67 kg 74 kg General appearance: PRESENT: no acute distress, cooperative Respiratory exam: PRESENT: clear to auscultation lexi Cardiovascular exam: PRESENT: RRR GI/Abdominal exam: PRESENT: other - Soft, nondistended, minimal tenderness. Active bowel sounds. Wound is clean dry and intact. Drain output is blood- tinged. Results Laboratory Results: 01/16/20 05:38 01/16/20 05:38 01/15/20 11:15 Troponin I 0.045 Impressions: Chest X-Ray 01/15/20 11:15 IMPRESSION: DEXTROCARDIA. LINEAR ATELECTASIS/ SCARRING IN THE RIGHT LUNG BASE. NO OTHER SIGNIFICANT FINDINGS. Assessment & Plan - Diagnosis (1) Incarcerated umbilical hernia Is this a current diagnosis for this admission?: Yes Plan: Status post umbilical hernia repair. Patient looks good. Will start solid diet today. DC Alcazar catheter. Recheck Chem-7 in the morning. Her creatinine was decreasing well yesterday. Will likely pull the drain tomorrow prior to possible discharge tomorrow - Time Anticipated Discharge Disposition: Home, Self Care Anticipated Discharge Timeframe: within 24 hours
[2020-01-17] MEDS: CARVEDILOL 12.5 MG TABLET PO SCH ×2 (09:47→21:12)
[2020-01-17] MEDS: PANTOPRAZOLE SODIUM 40 MG VIAL IV SCH ×2 (09:47→21:13)
[2020-01-17] MEDS: LISINOPRIL 10 MG TABLET PO SCH (09:49)
[2020-01-17] MEDS: ASPIRIN 81 MG TABLET, ENT COATED PO SCH (09:50)
[2020-01-17] MEDS: ENOXAPARIN SODIUM INJ 40 MG/0.4 ML DISP.SYRIN SUBCUT SCH (09:50)
[2020-01-17] MEDS ORDERED: (PENDING PHARMACY ID) (Lisinopril [Zestril] 40 MG) PO SCH (10:00)
--- NOTE | 2020-01-17 19:35 | PDOC PROGRESS REPORT ---
Subjective Progress Note for:: 01/17/20 Subjective:: No chest pain or difficulty with breathing. No nausea or vomiting. Minimal pain around surgical wound site. No fever or chills. Reason For Visit: INCARCIRATED UMBILICAL HERNIA NON ISCHEMIC Physical Exam Vital Signs: Temp Pulse Resp BP Pulse Ox 98.1 F 63 19 126/68 H 96 01/17/20 07:21 01/17/20 07:21 01/17/20 07:21 01/17/20 07:21 01/17/20 07:21 Intake & Output 01/16/20 01/17/20 01/18/20 06:59 06:59 06:59 Intake Total 3000 6728 Output Total 1335 2025 Balance 1665 4703 Weight 67 kg 74 kg Physical Exam: General appearance: PRESENT: no acute distress Head exam: PRESENT: atraumatic, normocephalic Eye exam: PRESENT: conjunctiva pink. ABSENT: pallor, scleral icterus Respiratory exam: PRESENT: clear to auscultation lexi Cardiovascular exam: PRESENT: RRR, +S1, +S2. ABSENT: diastolic murmur, rubs, s ystolic murmur GI/Abdominal exam: PRESENT: normal bowel sounds, soft, minimal tenderness - around surgical wound site. [place] in place. No erythema, discharge, or drainage.. ABSENT: distended, guarding, mass, organomegaly, rebound Extremities exam: ABSENT: pedal edema Neurological exam: PRESENT: alert, awake, oriented to person, oriented to place, oriented to time, oriented to situation, CN II-XII grossly intact. ABSENT: motor sensory deficit Skin exam: PRESENT: dry, warm, other - subcutaneous drainage system with serosanguineous fluid. Results Laboratory Results: 01/16/20 05:38 01/16/20 05:38 01/15/20 11:15 Troponin I 0.045 Impressions: Chest X-Ray 01/15/20 11:15 IMPRESSION: DEXTROCARDIA. LINEAR ATELECTASIS/ SCARRING IN THE RIGHT LUNG BASE. NO OTHER SIGNIFICANT FINDINGS. Assessment & Plan - Diagnosis (1) Strangulated umbilical hernia Is this a current diagnosis for this admission?: Yes (2) Hypotension Qualifiers: Hypotension type: hypotension due to hypovolemia Qualified Code(s): I95.89 - Other hypotension; E86.1 - Hypovolemia Is this a current diagnosis for this admission?: Yes (3) Non-ischemic cardiomyopathy Is this a current diagnosis for this admission?: Yes (4) Chronic systolic CHF (congestive heart failure) Is this a current diagnosis for this admission?: Yes (5) COPD (chronic obstructive pulmonary disease) Is this a current diagnosis for this admission?: Yes - Time Time Spent with patient: 25-34 minutes Level of Care: IMCU Medications reviewed and adjusted accordingly: Yes Anticipated discharge: Home Anticipated DC Timeframe: within 72 hours - Inpatient Certification Based on my medical assessment, after consideration of the patient's comorbidities, presenting symptoms, or acuity I expect that the services needed warrant INPATIENT care.: Yes I certify that my determination is in accordance with my understanding of Medicare's requirements for reasonable and necessary INPATIENT services [42 CFR 412.3e].: Yes Medical Necessity: Significant Comorbidiites Make Outpatient Treatment Too Risky, Need Close Monitoring Due to Risk of Patient Decompensation, Need For IV Fluids, Need For Continuous Telemetry Monitoring, Need for IV Antibiotics, Need for Surgery, Risk of Complication if Not Cared For in Hospital, Risk of Diagnosis Which Will Require Inpatient Eval/Care/Monitoring Post Hospital Care: D/C Rn Cardiac Cath Documentation - Plan Summary Plan Summary: D/C Alcazar catheter. PT to ambulate. Agreed with diet advance. Restart on preadmission medications. Possible d/c home tomorrow.
[2020-01-18] MEDS: NORMAL SALINE 1000 ML 1,000 ML IV PRN (04:20)
[2020-01-18 06:48] LABS: ANION GAP 6 (5-19); BLOOD UREA NITROGEN 11 mg/dL (7-20); CARBON DIOXIDE 23 mmol/L (22-30); CHLORIDE 109 mmol/L (98-107); GLUCOSE 97 mg/dL (75-110); POTASSIUM 3.8 mmol/L (3.6-5.0)
[2020-01-18] MEDS: PANTOPRAZOLE SODIUM 40 MG VIAL IV SCH (09:41)
[2020-01-18] MEDS: LISINOPRIL 10 MG TABLET PO SCH (09:41)
[2020-01-18] MEDS: CARVEDILOL 12.5 MG TABLET PO SCH (09:42)
[2020-01-18] MEDS: ASPIRIN 81 MG TABLET, ENT COATED PO SCH (09:42)
[2020-01-18] MEDS: ENOXAPARIN SODIUM INJ 40 MG/0.4 ML DISP.SYRIN SUBCUT SCH (09:43)
--- NOTE | 2020-01-18 10:46 | PDOC PROGRESS REPORT ---
Subjective Progress Note for:: 01/18/20 Reason For Visit: INCARCIRATED UMBILICAL HERNIA NON ISCHEMIC Patient is postoperative day 3, status post open umbilical hernia with drain placement. Doing well, tolerating a diet, adequate pain control. 20 cc of serous drainage from the drain. Physical Exam Vital Signs: Temp Pulse Resp BP Pulse Ox 98.4 F 77 18 125/74 92 01/18/20 10:00 01/18/20 07:58 01/18/20 07:58 01/18/20 07:58 01/18/20 07:58 Intake & Output 01/17/20 01/18/20 01/19/20 06:59 06:59 06:59 Intake Total 6728 3352 Output Total 2024 Balance 4703 3352 Weight 74 kg 76 kg General appearance: PRESENT: no acute distress GI/Abdominal exam: PRESENT: other - Abdomen is soft, nontender no peritoneal signs no rigidity. Steri-Strips in place. Drain removed uneventfully Results Laboratory Results: 01/16/20 05:38 01/18/20 05:59 01/18/20 05:59 Sodium 137.8 Potassium 3.8 Chloride 109 H Carbon Dioxide 23 Anion Gap 6 BUN 11 Creatinine 0.75 Est GFR ( Amer) > 60 Glucose 97 Calcium 8.0 L 01/15/20 11:15 Troponin I 0.045 Impressions: Chest X-Ray 01/15/20 11:15 IMPRESSION: DEXTROCARDIA. LINEAR ATELECTASIS/ SCARRING IN THE RIGHT LUNG BASE. NO OTHER SIGNIFICANT FINDINGS. Assessment & Plan - Diagnosis (1) Incarcerated umbilical hernia Is this a current diagnosis for this admission?: Yes Plan: Impression: Doing well status post open umbilical hernia, no mesh; drain out; tolerating diet Recommendations: 1. Patient may be discharged home, follow-up with [facility] in 1 to 2 weeks 2. May shower in 48 hours 3. Have instructed nursing staff to apply abdominal binder 4. May take Tylenol or Motrin as needed pain 5. I have discussed the above with nursing staff, and Dr. Glaser, primary care physician. - Time Time Spent: 30 to 50 Minutes Critical Time spent with patient: Less than 15 minutes Medications reviewed and adjusted accordingly: Yes Anticipated Discharge Disposition: Home, Self Care Anticipated Discharge Timeframe: within 24 hours
--- NOTE | 2020-01-18 14:51 | PDOC DISCHARGE SUMMARY ---
Impression - Admit/DC Date/PCP Admission Date/Primary Care Provider: 01/15/20 14:53 ANGELIA KRISHNAN Discharge Date: 01/18/20 - Discharge Diagnosis (1) Strangulated umbilical hernia Is this a current diagnosis for this admission?: Yes (2) Hypotension Is this a current diagnosis for this admission?: Yes (3) Non-ischemic cardiomyopathy Is this a current diagnosis for this admission?: Yes (4) Chronic systolic CHF (congestive heart failure) Is this a current diagnosis for this admission?: Yes (5) COPD (chronic obstructive pulmonary disease) Is this a current diagnosis for this admission?: Yes - Assessment Summary: Patient was admitted for incarcerated umbilical hernia with nausea, vomiting, and abdominal pain. She had successful surgical intervention with repair. Patient did very well post operatively and currently advanced to regular diet with complete resolution of her symptoms. She will remain on all pre-admission medications. She will follow up with the surgical team and myself in office as instructed upon discharge. - Additional Information Resuscitation Status: Full Code Referrals: JAKOB QUINTANILLA PA [PHYSICIAN BREAST BUFFER] - Follow up as needed (wrong PCP) ANGELIA KRISHNAN MD [Primary Care Provider] - 02/06/20 10:00 am ALEJANDRA ALTAMIRANO MD [ACTIVE STAFF] - Home Medications: Aspirin [Ecotrin 81 mg EC Tablet] 81 mg PO DAILY 01/15/20 Carvedilol [Coreg] 25 mg PO Q12 01/15/20 Lisinopril [Zestril] 40 mg PO DAILY 01/15/20 History of Present Illiness History of Present Illness: GISSEL LYNN is a 64 year old female patient known to my practice who has missed several office appointment due to lack of insurance coverage. She presented to the office earlier today with three days history of worsening abdominal pain with associated nausea and vomiting. She reported difficulty with her umbilical hernia becoming more difficulty to reduce and associated pain. She denied any fever or chills. She reported compliance with her medication. She has not been able to follow up with her patternmaker apprentice wood at [facility] but informed me during her visit that she wanted her CMP test completed at the directive of her patternmaker apprentice wood. Her office evaluation did revealed incarcerated umbilical hernia and she appeared acutely ill in the office. Her CBC with differential did revealed leukocytosis with left shift. She was advised hospitalization but due to need for COVID-19 testing, she was directed to the ED for further evaluation. She was seen in consultation by patternmaker apprentice wood and the on duty surgicalist for cardiac clearance and immediate surgical intervention. Her morbidities are at listed below. Hospital Course Hospital Course: Patient was admitted for incarcerated umbilical hernia with nausea, vomiting, and abdominal pain. She had successful surgical intervention with repair. Patient did very well post operatively and currently advanced to regular diet with complete resolution of her symptoms. She will remain on all pre-admission medications. She will follow up with the surgical team and myself in office as instructed upon discharge. Physical Exam Vital Signs: Temp Pulse Resp BP Pulse Ox 98.5 F 68 18 125/69 99 01/18/20 11:02 01/18/20 14:00 01/18/20 11:02 01/18/20 11:02 01/18/20 11:02 Intake & Output 01/17/20 01/18/20 01/19/20 06:59 06:59 06:59 Intake Total 6728 3352 480 Output Total 5 Balance 4703 3352 480 Weight 74 kg 76 kg General appearance: PRESENT: no acute distress Head exam: PRESENT: atraumatic, normocephalic Eye exam: PRESENT: conjunctiva pink. ABSENT: pallor, sclera icterus Respiratory exam: PRESENT: clear to auscultation lexi Cardiovascular exam: PRESENT: RRR, +S1, +S2. ABSENT: diastolic murmur, rubs, systolic murmur GI/Abdominal exam: PRESENT: normal bowel sounds, soft. No erythema, discharge, or drainage. ABSENT: distended, guarding, mass, organomegaly, rebound Extremities exam: ABSENT: pedal edema Neurological exam: PRESENT: alert, awake, oriented to person, oriented to place, oriented to time, oriented to situation, CN II-XII grossly intact. ABSENT: motor sensory deficit Skin exam: PRESENT: dry, warm, lisseth in place. Results Laboratory Results: WBC 14.1 10^3/uL (4.0-10.5) H 01/16/20 05:38 RBC 4.47 10^6/uL (3.72-5.28) 01/16/20 05:38 Hgb 14.5 g/dL (12.0-15.5) D 01/16/20 05:38 Hct 42.2 % (36.0-47.0) 01/16/20 05:38 MCV 94 fl (80-97) 01/16/20 05:38 MCH 32.4 pg (27.0-33.4) 01/16/20 05:38 MCHC 34.3 g/dL (32.0-36.0) 01/16/20 05:38 RDW 13.5 % (11.5-14.0) 01/16/20 05:38 Plt Count 247 10^3/uL (150-450) 01/16/20 05:38 Lymph % (Auto) 8.1 % (13-45) L 01/16/20 05:38 [place] % (Auto) 15.9 % (3-13) H 01/16/20 05:38 Eos % (Auto) 0.0 % (0-6) 01/16/20 05:38 Baso % (Auto) 0.1 % (0-2) 01/16/20 05:38 Absolute Neuts (auto) 10.7 10^3/uL (1.7-8.2) H 01/16/20 05:38 Absolute Lymphs (auto) 1.1 10^3/uL (0.5-4.7) 01/16/20 05:38 Absolute Monos (auto) 2.2 10^3/uL (0.1-1.4) H 01/16/20 05:38 Absolute Eos (auto) 0.0 10^3/uL (0.0-0.6) 01/16/20 05:38 Absolute Basos (auto) 0.0 10^3/uL (0.0-0.2) 01/16/20 05:38 Seg Neutrophils % 75.9 % (42-78) 01/16/20 05:38 PT 13.0 SEC (11.4-15.4) 01/15/20 11:15 INR 0.96 01/15/20 11:15 VBG pH 7.43 (7.30-7.42) H 01/15/20 11:15 VBG pCO2 49.8 mmHg (35-63) 01/15/20 11:15 VBG HCO3 32.5 mmol/L (20-32) H 01/15/20 11:15 VBG Base Excess 6.4 mmol/L 01/15/20 11:15 Sodium 137.8 mmol/L (137-145) 01/18/20 05:59 Potassium 3.8 mmol/L (3.6-5.0) 01/18/20 05:59 Chloride 109 mmol/L (98-107) H 01/18/20 05:59 Carbon Dioxide 23 mmol/L (22-30) 01/18/20 05:59 Anion Gap 6 (5-19) 01/18/20 05:59 BUN 11 mg/dL (7-20) 01/18/20 05:59 Creatinine 0.75 mg/dL (0.52-1.25) 01/18/20 05:59 Est GFR ( Amer) > 60 (>60) 01/18/20 05:59 Est GFR (MDRD) Non-Af > 60 (>60) 01/18/20 05:59 Glucose 97 mg/dL (75-110) 01/18/20 05:59 Lactic Acid 1.4 mmol/L (0.7-2.1) 01/15/20 19:55 Calcium 8.0 mg/dL (8.4-10.2) L 01/18/20 05:59 Total Bilirubin 0.6 mg/dL (0.2-1.3) 01/16/20 05:38 Direct Bilirubin 0.3 mg/dL (0.0-0.4) 01/16/20 05:38 Neonat Total Bilirubin Not Reportable 01/16/20 05:38 Neonat Direct Bilirubin Not Reportable 01/16/20 05:38 Neonat Indirect Bili Not Reportable 01/16/20 05:38 AST 21 U/L (14-36) 01/16/20 05:38 ALT 24 U/L (<35) 01/16/20 05:38 Alkaline Phosphatase 48 U/L (38-126) 01/16/20 05:38 Troponin I 0.045 ng/mL 01/15/20 11:15 Total Protein 5.6 g/dL (6.3-8.2) L 01/16/20 05:38 Albumin 3.0 g/dL (3.5-5.0) L 01/16/20 05:38 Lipase 167.3 U/L (23-300) 01/15/20 11:15 Urine Color DARK YELLOW 01/15/20 13:48 Urine Appearance CLOUDY 01/15/20 13:48 Urine pH 5.0 (5.0-9.0) 01/15/20 13:48 Ur Specific [place] 1.021 01/15/20 13:48 Urine Protein 100 mg/dL (NEGATIVE) H 01/15/20 13:48 Urine Glucose (UA) NEGATIVE mg/dL (NEGATIVE) 01/15/20 13:48 Urine Ketones NEGATIVE mg/dL (NEGATIVE) 01/15/20 13:48 Urine Blood SMALL (NEGATIVE) H 01/15/20 13:48 Urine Nitrite (Reflex) NEGATIVE (NEGATIVE) 01/15/20 13:48 Urine Bilirubin NEGATIVE (NEGATIVE) 01/15/20 13:48 Urine Urobilinogen 2.0 mg/dL (<2.0) H 01/15/20 13:48 Leukocyte Esterase Rfl MODERATE (NEGATIVE) H 01/15/20 13:48 Urine RBC (Auto) 11 /HPF 01/15/20 13:48 U Hyaline Cast (Auto) 5 /LPF 01/15/20 13:48 Urine Bacteria (Auto) 1+ /HPF 01/15/20 13:48 Urine WBC (Reflex) 10 /HPF 01/15/20 13:48 Squamous Epi Cells Auto 8 /HPF 01/15/20 13:48 Urine Mucus (Auto) RARE /LPF 01/15/20 13:48 Urine Ascorbic Acid NEGATIVE (NEGATIVE) 01/15/20 13:48 SARS-CoV-2 (PCR) NEGATIVE (NEGATIVE) 01/15/20 12:20 Blood Type A POSITIVE 01/15/20 11:57 Antibody Screen NEGATIVE 01/15/20 11:57 01/15/20 11:15 Troponin I 0.045 Impressions: Chest X-Ray 01/15/20 11:15 IMPRESSION: DEXTROCARDIA. LINEAR ATELECTASIS/ SCARRING IN THE RIGHT LUNG BASE. NO OTHER SIGNIFICANT FINDINGS. Plan Health Concerns: Compliance with follow up management and medications. Plan of Treatment: Continue abdominal wall support with griddle usage and follow up with surgical team as instructed. Goals: Reduce readmission risk. Stroke Is this a Stroke Patient?: No Acute Heart Failure Is this a Heart Failure Patient?: No
[2020-01-18 15:51] VITALS: BP 121/63
== END 2020-01-18 15:59 | disposition home or self-care (01) | DRG 354 ==
LOC: ER 10:39 → EH 14:53 → 3S 19:06
PROVIDERS: ADMIT Internal Medicine Geriatric Medicine; ATTEND Internal Medicine Geriatric Medicine
PROC: 0WQF0ZZ Repair Abdominal Wall, Open Approach (ICD-10-PCS; principal; 2020-01-15 15:00)
DX: K42.0 Umbilical hernia with obstruction, without gangrene (principal); I42.8 Other cardiomyopathies; I50.22 Chronic systolic (congestive) heart failure; I69.351 Hemiplegia and hemiparesis following cerebral infarction affecting right dominant side; Z86.74 Personal history of sudden cardiac arrest; N19 Unspecified kidney failure; I95.9 Hypotension, unspecified; J44.9 Chronic obstructive pulmonary disease, unspecified; E05.90 Thyrotoxicosis, unspecified without thyrotoxic crisis or storm; I95.89 Other hypotension; E86.1 Hypovolemia; F17.200 Nicotine dependence, unspecified, uncomplicated; Z11.59 Encounter for screening for other viral diseases; Z79.82 Long term (current) use of aspirin; Z79.899 Other long term (current) drug therapy
CPT/HCPCS: 00750; 36415; 71045; 80048; 80053; 81001; 82803; 83605; 83690; 84484; 85025; 85610; 86850; 86900; 86901; 87040; 87635; 88302; 93005; 93010; 94799; 96361; 96365; 96375; 99140; 99285; C1758; C9113; C9803; J0330; J1100; J1650; J2250; J2370; J2405; J2543; J2704; J3010; J3490; J7030